=== PATIENT | female | born 1965 ===

== ENCOUNTER 2023-09-18 07:58 | Outpatient (CLI) | payer OTHER ==
[~2023-09-18 07:58] MED LIST: CODE1TAB37 PO; Surfak PO
== END 2023-09-18 08:02 | disposition home or self-care (01) ==
LOC: SONOGRAMA 07:58
PROVIDERS: ATTEND Pathology Anatomic Pathology & Clinical Pathology
DX: D44.0 Neoplasm of uncertain behavior of thyroid gland (principal); E07.9 Disorder of thyroid, unspecified

== ENCOUNTER 2024-01-29 14:55 | Outpatient (CLI) | payer OTHER | END 2024-01-29 14:57 | disposition home or self-care (01) | LOC: SONOGRAMA 14:55 | PROVIDERS: ATTEND Pathology Anatomic Pathology & Clinical Pathology | DX: E04.1 Nontoxic single thyroid nodule (principal); D34 Benign neoplasm of thyroid gland ==